=== PATIENT | male | born 1975 | race Caucasian/White ===

== ENCOUNTER 2020-04-29 08:04 | Outpatient (RCR) | payer OTHER, SELFPAY ==
--- NOTE | 2020-04-29 12:42 | PT.OIE ---
Current Diagnoses Testicular pain, unspecified (04/29/20) Visit Care Team Role Provider Type Other Providers Specialty: Address: Phone: Fax: Email: Jennifer Cotto PA-C Family Provider Non-Staff Primary Care Provider Specialty: Medical Address: [address], [address], [place], [address] Email: Iban Albrecht MD Attending Provider Non-Staff Referring Provider Specialty: Urology [facility] [address] [facility], [place], [address] Email: Physical Therapy Initial Evaluation PT-OP-A Visit Information Start: 04/29/20 09:34 Freq: Status: Active Protocol: Document 04/29/20 08:15 AMB (Rec: 04/29/20 16:01 AMB [id number]) Out-Patient Physical Therapy Visit Information Visit Information Visit Type Initial Evaluation Visit Start Time 08:15 Visit Stop Time 09:15 Total Visit Minutes 60 Visit Number 1 PT-OP-B Current Condition Start: 04/29/20 09:34 Freq: Status: Active Protocol: Document 04/29/20 08:15 AMB (Rec: 04/29/20 16:01 AMB [id number]) Current Condition History of Current Condition Onset Date July 2019 Current Complaints L pelvic pain with lifting History of Current Condition Eric had a vasectomy 2 years ago. He noticed pain if anything touched the base of his left scrotum, and there were really only certain underwear that he could wear that did not irritate that area. Interestingly, he notes that he had significant pain during his the surgery of his vasectomy, like the pain medication did not work. He elected to have a reversal, thinking that would help with the pain, and it did for a few months until he was lifting a 70# canopy multiple times over his head during the summer. Since then his pain has been significantly worse with lifting, like lifting his kids into their high chairs or out of the bathtub. The pain can increase for a few hours after that but varies significantly. He has been checked for a hernia, and the doctor could not find one. He describes the pain as stabbing. He denies painful intercourse, or urinary or fecal incontinence. He does feel like sometimes his testicals/penis are being drawn up inside of him when his pain is bad. He has noticed a decreased stream of urine. He has a history of low back pain worst with sitting in the car. Has tried multiple cars but they all recreat left buttock pain and he can have numbness that goes down his left leg. This started about 5 years ago, before the vasectomy. He also has a history of a basketball injury where he thought he might have had to have surgery for testicular torsion but ended up with a vein that had burst and was filling the scrotum with blood. He did have to have an open surgery ( on the left) for that. Treatment Goals Patient/Caregiver Goals Lift kids without pain Prior Functional Status Baseline Function- ADL's Independent Baseline Function- Mobility Independent Current Functional Impairments (Reported) Functional Limitations- ADL's Difficulty lifting/sleeping due to pain PT-OP-I Pelvic Floor Start: 04/29/20 09:34 Freq: Status: Active Protocol: Document 04/29/20 08:15 AMB (Rec: 04/29/20 16:01 AMB [id number]) Pelvic Floor Assessment Urine Urinary Symptoms Pain Bowel Bowel Surgery No Comments Pelvic Floor Comments Tension throughout adductors, hip flexor, levator ani on the L none on the R that was palpable. Mild back pain with PAs L5 and S1, did not reproduce pelvic pain. Pain with palpation over piriformis on the left, but did not reproduce back pain. PT-OP-Q Treatments Start: 04/29/20 09:34 Freq: Status: Active Protocol: Document 04/29/20 08:15 AMB (Rec: 04/30/20 08:14 AMB [email or web address]) Therapeutic Exercises Supine Exercises 1 Supine Exercise Name happy baby Reps/Minutes 30x2 Standing Exercises 1 Standing Exercise Name wall squat- full sacrum against wall Reps/Minutes 2x20 PT-OP-T Assessment and Plan Start: 04/29/20 09:34 Freq: Status: Active Protocol: Document 04/29/20 08:15 AMB (Rec: 04/30/20 08:14 AMB [email or web address]) Physical Therapy Assessment Rehab Potential Rehabilitation Potential Good Evaluation Complexity Number of Personal Factors/Comorbidities 1-2 Number of Body Systems Impaired 4 or More Clinical Presentation at Evaluation Evolving Impairments Impairments Functional Activities,Pain, Soft Tissue Mobility,Tone Goals Three Impairment HEP Short Term Goal (STG) Eric will be independent and consistent with a HEP to relax his pelvic floor. STG Duration 4 weeks Two Impairment Pelvic floor tone Short Term Goal (STG) Eric will be able to relax his pelvic floor so that moderate palpation of the levator ani does not reproduce his sx on the left. STG Duration 4 weeks Boarding Mother Goal (LTG) Eric will urinate with a normal flow, to show improved pelvic floor relaxation. LTG Duration 8 weeks One Impairment Lifting Short Term Goal (STG) Eric will learn to lift 10 pounds from the ground to waist height without bearing down and without an increase in pain. STG Duration 4 weeks Mcfp Goal (LTG) Eric will lift his 2 year old up into the high chair without an increase in pain. LTG Duration 8 weeks Assessment Summary Assessment Eric attends physical therapy with pain with lifting s/p vasectomy reversal. Per his report he has been cleared of inguinal hernias. His pain is always on the left side. He has significant increase in pelvic floor tone and will benefit from PT to help him release the tension in his left pelvic floor and further assess his back pain and nerve sx as they are likely playing a role in left sided tension. Physical Therapy Plan Frequency and Duration Frequency of Treatment 1x/Week Duration of Treatment 10 weeks Plan of Care Start Date 04/29/20 Plan of Care End Date 07/08/20 Therapeutic Interventions Therapeutic Interventions Home Exercise Program,Manual Therapy,Neuromuscular Re- education,Self-Care/Home Management,Therapeutic Activities,Therapeutic Exercises Modalities Biofeedback,Cold Pack/Ice Massage,Electric Stimulation, Hot Packs Next Visit Focus/Plan Next Note Type Treatment Note Next Visit Plan Progress hip openers and manual therapy, address body mechanics with driving
--- NOTE | 2020-04-29 12:47 | PT.OPPOC ---
Physical, Occupational & Speech Therapy At [facility] Current Diagnoses Testicular pain, unspecified (04/29/20) Visit Care Team Role Provider Type Other Providers Specialty: Address: Phone: Fax: Email: Jennifer Cotto PA-C Family Provider Non-Staff Primary Care Provider Specialty: Medical Address: [address], [address], [place], [address] Email: Iban Albrecht MD Attending Provider Non-Staff Referring Provider Specialty: Urology [facility], [place], [address] Email: Plan Of Care PT-OP-T Assessment and Plan Start: 04/29/20 09:34 Freq: Status: Active Protocol: Document 04/29/20 08:15 AMB (Rec: 04/30/20 08:14 AMB [email or web address]) Physical Therapy Assessment Rehab Potential Rehabilitation Potential Good Evaluation Complexity Number of Personal Factors/Comorbidities 1-2 Number of Body Systems Impaired 4 or More Clinical Presentation at Evaluation Evolving Impairments Impairments Functional Activities,Pain, Soft Tissue Mobility,Tone Goals Three Impairment HEP Short Term Goal (STG) Eric will be independent and consistent with a HEP to relax his pelvic floor. STG Duration 4 weeks Two Impairment Pelvic floor tone Short Term Goal (STG) Eric will be able to relax his pelvic floor so that moderate palpation of the levator ani does not reproduce his sx on the left. STG Duration 4 weeks General Foundry Worker Goal (LTG) Eric will urinate with a normal flow, to show improved pelvic floor relaxation. LTG Duration 8 weeks One Impairment Lifting Short Term Goal (STG) Eric will learn to lift 10 pounds from the ground to waist height without bearing down and without an increase in pain. STG Duration 4 weeks General Foundry Worker Goal (LTG) Eric will lift his 2 year old up into the high chair without an increase in pain. LTG Duration 8 weeks Assessment Summary Assessment Eric attends physical therapy with pain with lifting s/p vasectomy reversal. Per his report he has been cleared of inguinal hernias. His pain is always on the left side. He has significant increase in pelvic floor tone and will benefit from PT to help him release the tension in his left pelvic floor and further assess his back pain and nerve sx as they are likely playing a role in left sided tension. Physical Therapy Plan Frequency and Duration Frequency of Treatment 1x/Week Duration of Treatment 10 weeks Plan of Care Start Date 04/29/20 Plan of Care End Date 07/08/20 Therapeutic Interventions Therapeutic Interventions Home Exercise Program,Manual Therapy,Neuromuscular Re- education,Self-Care/Home Management,Therapeutic Activities,Therapeutic Exercises Modalities Biofeedback,Cold Pack/Ice Massage,Electric Stimulation, Hot Packs Next Visit Focus/Plan Next Note Type Treatment Note Next Visit Plan Progress hip openers and manual therapy, address body mechanics with driving Plan of Care Dates Plan of Care Start Date 04/29/20 Plan of Care End Date 07/08/20 Electronically Signed by: Caitlyn St, PT 04/30/20 1149 Please Sign and Return: I have reviewed this Plan of Care and certify that the skilled therapy services above are required to meet the patient?s needs. Physician Signature Date Printed Name and Credentials Clinical Instructor Signature Printed Name and Credentials
--- NOTE | 2020-06-25 10:07 | PT.OPDS ---
Current Diagnoses Testicular pain, unspecified (04/29/20) Visit Care Team Role Provider Type Other Providers Specialty: Address: Phone: Fax: Email: Jennifer Cotto PA-C Family Provider Non-Staff Primary Care Provider Specialty: Medical Address: [address], [address], [place], [address] Email: Iban Albrecht MD Attending Provider Non-Staff Referring Provider Specialty: Urology Address: [address], [place], [address] Email: Visit Number Visit Number 1 Discharge Summary PT-OP-B Current Condition Start: 04/29/20 09:34 Freq: Status: Active Protocol: Document 04/29/20 08:15 AMB (Rec: 04/29/20 16:01 AMB [id number]) Current Condition History of Current Condition Onset Date July 2019 Current Complaints L pelvic pain with lifting History of Current Condition Eric had a vasectomy 2 years ago. He noticed pain if anything touched the base of his left scrotum, and there were really only certain underwear that he could wear that did not irritate that area. Interestingly, he notes that he had significant pain during his the surgery of his vasectomy, like the pain medication did not work. He elected to have a reversal, thinking that would help with the pain, and it did for a few months until he was lifting a 70# canopy multiple times over his head during the summer. Since then his pain has been significantly worse with lifting, like lifting his kids into their high chairs or out of the bathtub. The pain can increase for a few hours after that but varies significantly. He has been checked for a hernia, and the doctor could not find one. He describes the pain as stabbing. He denies painful intercourse, or urinary or fecal incontinence. He does feel like sometimes his testicals/penis are being drawn up inside of him when his pain is bad. He has noticed a decreased stream of urine. He has a history of low back pain worst with sitting in the car. Has tried multiple cars but they all recreat left buttock pain and he can have numbness that goes down his left leg. This started about 5 years ago, before the vasectomy. He also has a history of a basketball injury where he thought he might have had to have surgery for testicular torsion but ended up with a vein that had burst and was filling the scrotum with blood. He did have to have an open surgery ( on the left) for that. Treatment Goals Patient/Caregiver Goals Lift kids without pain Prior Functional Status Baseline Function- ADL's Independent Baseline Function- Mobility Independent Current Functional Impairments (Reported) Functional Limitations- ADL's Difficulty lifting/sleeping due to pain PT-OP-I Pelvic Floor Start: 04/29/20 09:34 Freq: Status: Active Protocol: Document 04/29/20 08:15 AMB (Rec: 04/29/20 16:01 AMB [id number]) Pelvic Floor Assessment Urine Urinary Symptoms Pain Bowel Bowel Surgery No Comments Pelvic Floor Comments Tension throughout adductors, hip flexor, levator ani on the L none on the R that was palpable. Mild back pain with PAs L5 and S1, did not reproduce pelvic pain. Pain with palpation over piriformis on the left, but did not reproduce back pain. PT-OP-T Assessment and Plan Start: 04/29/20 09:34 Freq: Status: Active Protocol: Document 06/25/20 10:06 AMB (Rec: 06/25/20 10:07 AMB [email or web address]) Physical Therapy Plan Discharge Physical Therapy Discharge Reasons Patient Request Discharge Comments Eric called to cancel his remaining appointments due to a change in work schedule and has not called back to reschedule, he has not been seen in 2 months therefore he is discharged, he was not seen after his initial evaluation.
== END 2020-06-26 13:34 ==
LOC: PHYS 08:04
PROVIDERS: Family Provider Physician Assistant; PCP Physician Assistant; Referring Provider Urology; Visit Provider Urology
DX: N50.819 Testicular pain, unspecified (principal)
CPT/HCPCS: 97162